=== PATIENT | female | born 1940 | race Caucasian/White ===

== ENCOUNTER 2024-05-28 20:19 | Emergency (ER) | payer OTHER, BC ==
[~2024-05-28] VITALS: Ht 170.2 cm; Wt 96.2 kg
[2024-05-28] MEDS ORDERED: Acetaminophen 500 MG Tab PO ONE (20:45)
[2024-05-29] MEDS ORDERED: RX Prepack 6 Tabs Oxycodone 5mg UD ONE (00:05)
== END 2024-05-29 00:30 | disposition home or self-care (01) ==
LOC: ER 20:19
DX: S52.502A Unspecified fracture of the lower end of left radius, initial encounter for closed fracture (principal); S32.029A Unspecified fracture of second lumbar vertebra, initial encounter for closed fracture; W01.0XXA Fall on same level from slipping, tripping and stumbling without subsequent striking against object, initial encounter; Z88.0 Allergy status to penicillin; Z88.7 Allergy status to serum and vaccine
CPT/HCPCS: 72131; 72170; 73100; 73110; 99284-25; A9270